=== PATIENT | female | born 1990 | race Caucasian/White ===

== ENCOUNTER → 2016-06-21 | Outpatient (CLI) | payer OTHER ==
[~2016-06-21] MED LIST: AUGMENTIN 875 M1 TAB PO; BACTRIM DS 8001 TAB PO; BUSPIRONE10 MG PO; CIPROFLOXACIN500 MG PO; HYDROCODONE BIT1 T11 PO; KEFLEX500 MG PO; KETOROLAC10 MG PO; MACROBID100 M1 PO; MOTRIN600 MG PO; MOTRIN800 MG PO; NORCO 325 MG-51 TAB PO; NORCO 5-325 TA1 EACH PO; PRILOSEC10 MG/Pack PO; PROAIR HFA8.5 GM INH; PYRIDIUM200 M1 PO; ROBAXIN500 MG PO; SERTRALINE HYDR50 MG PO; SILVADENE,SSD C50 GM PO; TAMSULOSIN HCL0.4 MG PO; ULTRAM50 MG PO; VERAMYST27.5 MCG/A NAS; VICODIN 500 MG-1 TAB PO; VICODIN ES 7501 TAB PO; ZOFRAN ODT4 MG SL
== END | disposition home or self-care (01) ==
LOC: LAB 14:33
DX: N20.1 Calculus of ureter (principal)

== ENCOUNTER → 2016-11-13 | Outpatient (CLI) | payer OTHER | END | disposition home or self-care (01) | LOC: CT 09:00 | DX: J32.0 Chronic maxillary sinusitis (principal); Z85.41 Personal history of malignant neoplasm of cervix uteri ==

== ENCOUNTER 2017-05-24 21:17 | Emergency (ER) | payer SELFPAY ==
[~2017-05-24] VITALS: Ht 162.5 cm; Wt 72.6 kg
--- NOTE | ~2017-05-24 | EKG ---
[place], [place] ELECTROCARDIOGRAM REPORT NAME: RICARDO RANDHAWA UNIT #: [id number] ROOM: DOCTOR: RICARDO DESAI,MANDY BIRTHDATE: [birth year] DOS: 05/24/2017 TIME: 2203 hours. IMPRESSION: 1. Sinus rhythm, sinus tachycardia. 2. Incomplete right bundle-cass block. 3. Left atrial enlargement. 4. Nonspecific ST-T changes. MANDY SILVA MD CM:EKGRPT:ELECTROCARDIOGRAM REPORT [id number] MANDY SILVA MD
[2017-05-24 22:41] LABS: BASO % 0.2 % (0.0-1.0); EOS # 0.1 10*3/uL (0.0-0.4); EOS % 0.8 % (1.0-4.0); HEMATOCRIT 41.7 % (37.0-47.0); HEMOGLOBIN 14.1 g/dl (12.0-16.0); LYMPH # 1.8 10*3/uL (1.3-4.4); LYMPH % 10.8 % (27.0-41.0); MEAN CELL VOLUME 93.7 fl (81.0-99.0); MEAN CORPUSCULAR HGB 31.7 pg (27.0-31.0); MEAN CORPUSCULAR HGB CONC 33.8 g/dl (33.0-37.0); MEAN PLATELET VOLUME 9.9 fl (9.6-12.3); MONO # 0.8 10*3/uL (0.1-1.0); NEUT # 13.6 10*3/uL (2.3-7.9); NEUT % 82.2 % (47.0-73.0); PLATELET COUNT AUTOMATED 255 10*3/uL (130-400); RED BLOOD COUNT 4.45 10*6/uL (4.10-5.10); RED CELL DISTRI WIDTH 13.5 % (0-14.5); WHITE BLOOD COUNT 16.5 10*3/uL (4.8-10.8)
[2017-05-24 23:01] LABS: ALBUMIN 4.2 gm/dl (3.1-4.5); ALKALINE PHOSPHATASE 105 U/L (45-117); BUN 10 mg/dl (7-24); CHLORIDE 103 mmol/L (98-107); CREATININE 0.86 mg/dL (0.55-1.02); POTASSIUM 4.1 mmol/L (3.5-5.1); SGOT/AST 37 IU/L (3-35); SGPT/ALT 67 U/L (12-78); SODIUM 140 mmol/L (136-145); TOTAL PROTEIN 8.5 gm/dL (6.4-8.2)
[2017-05-24 23:08] LABS: BETA-HCG, QUANT < 1.0 mIU/mL (1-3); TROPONIN I < 0.015 ng/ml (<0.045)
== END 2017-05-25 01:39 | disposition home or self-care (01) ==
LOC: ED 21:17
PROVIDERS: Student in an Organized Health Care Education/Training Program
DX: J06.9 Acute upper respiratory infection, unspecified (principal); F17.200 Nicotine dependence, unspecified, uncomplicated; Z79.899 Other long term (current) drug therapy

== ENCOUNTER 2019-01-01 16:24 | Emergency (ER) | payer SELFPAY ==
[~2019-01-01] VITALS: Ht 162.5 cm; Wt 83.9 kg
[~2019-01-01 16:24] MED LIST changes: +PREDNISONE20 M1 PO; +PROVENTIL HFA6.7 GM INH; +TESSALON PERLE100 M1 PO
[2019-01-01 16:49] LABS: BILIRUBIN NEGATIVE (NEGATIVE); BLOOD NEGATIVE (NEGATIVE); CLARITY CLEAR (CLEAR); COLOR YELLOW (YELLOW); GLUCOSE NEGATIVE (NEGATIVE); KETONE NEGATIVE (NEGATIVE); LEUKO ESTERASE 1+ (NEGATIVE); NITRITE NEGATIVE (NEGATIVE); SPECIFIC GRAVITY 1.025 (1.005-1.030); UROBILINOGEN 0.2 E.U./dl (0.2-1.0)
[2019-01-01 16:56] LABS: BASO % 0.3 % (0.0-1.0); EOS # 0.1 10*3/uL (0.0-0.4); EOS % 0.6 % (1.0-4.0); HEMATOCRIT 43.4 % (37.0-47.0); HEMOGLOBIN 14.2 g/dl (12.0-16.0); LYMPH # 2.3 10*3/uL (1.3-4.4); LYMPH % 20.8 % (27.0-41.0); MEAN CELL VOLUME 95.8 fl (81.0-99.0); MEAN CORPUSCULAR HGB 31.3 pg (27.0-31.0); MEAN CORPUSCULAR HGB CONC 32.7 g/dl (33.0-37.0); MONO # 0.6 10*3/uL (0.1-1.0); MONO % 5.7 % (3.0-9.0); NEUT % 72.1 % (47.0-73.0); PLATELET COUNT AUTOMATED 251 10*3/uL (130-400); RED BLOOD COUNT 4.53 10*6/uL (4.10-5.10); RED CELL DISTRI WIDTH 13.2 % (0-14.5); WHITE BLOOD COUNT 11.1 10*3/uL (4.8-10.8)
[2019-01-01 17:09] LABS: BACTERIA 2+
[2019-01-01 17:11] LABS: ALKALINE PHOSPHATASE 83 U/L (45-117); BUN 11 mg/dl (7-24); CHLORIDE 107 mmol/L (98-107); CREATININE 0.86 mg/dL (0.55-1.02); POTASSIUM 4.2 mmol/L (3.5-5.1); SGOT/AST 16 IU/L (3-35); SGPT/ALT 27 U/L (12-78); SODIUM 137 mmol/L (136-145); TOTAL PROTEIN 7.8 gm/dL (6.4-8.2)
[2019-01-01] MEDS ORDERED: CEFUROXIME AXE500 MG PO (18:21)
== END 2019-01-01 18:24 | disposition home or self-care (01) ==
LOC: ED 16:24
PROVIDERS: Nurse Practitioner Family
DX: N39.0 Urinary tract infection, site not specified (principal); F17.200 Nicotine dependence, unspecified, uncomplicated; Z79.899 Other long term (current) drug therapy; Z87.442 Personal history of urinary calculi

== ENCOUNTER 2019-01-24 20:48 | Emergency (ER) | payer MEDICAID ==
[~2019-01-24] VITALS: Ht 162.5 cm; Wt 83.9 kg
[~2019-01-24 20:48] MED LIST changes: +CEFUROXIME AXE500 MG PO
[2019-01-24 21:12] LABS: BILIRUBIN NEGATIVE (NEGATIVE); BLOOD NEGATIVE (NEGATIVE); CLARITY CLOUDY (CLEAR); COLOR YELLOW (YELLOW); GLUCOSE NEGATIVE (NEGATIVE); KETONE NEGATIVE (NEGATIVE); LEUKO ESTERASE 1+ (NEGATIVE); NITRITE NEGATIVE (NEGATIVE); PH 6.5 (5.0-9.0); SPECIFIC GRAVITY 1.015 (1.005-1.030)
[2019-01-24 21:18] LABS: BACTERIA 4+; RBC 0-2 rbc/hpf (0-2)
[2019-01-24] MEDS ORDERED: MACROBID100 M1 PO (23:00)
== END 2019-01-24 23:50 | disposition home or self-care (01) ==
LOC: ED 20:48
PROVIDERS: Physician Assistant
DX: G43.909 Migraine, unspecified, not intractable, without status migrainosus (principal); N39.0 Urinary tract infection, site not specified; F17.200 Nicotine dependence, unspecified, uncomplicated; Z79.899 Other long term (current) drug therapy; Z87.440 Personal history of urinary (tract) infections

== ENCOUNTER 2019-03-24 18:57 | Emergency (ER) | payer OTHER ==
[~2019-03-24] VITALS: Ht 162.5 cm; Wt 78.0 kg
[2019-03-24] MEDS ORDERED: PREDNISONE20 M1 PO (20:44)
[2019-03-24] MEDS ORDERED: ROBAXIN-750750 MG PO (20:44)
== END 2019-03-24 20:45 | disposition home or self-care (01) ==
LOC: ED 18:57
DX: M54.2 Cervicalgia (principal); M25.511 Pain in right shoulder; M25.512 Pain in left shoulder; R20.2 Paresthesia of skin; R53.1 Weakness; Z79.899 Other long term (current) drug therapy

== ENCOUNTER 2019-04-14 15:12 | Emergency (ER) | payer OTHER ==
[~2019-04-14] VITALS: Ht 162.5 cm; Wt 78.5 kg
[~2019-04-14 15:12] MED LIST changes: +ROBAXIN-750750 MG PO
[2019-04-14 15:45] LABS: BASO % 0.3 % (0.0-1.0); EOS # 0.1 10*3/uL (0.0-0.4); EOS % 0.7 % (1.0-4.0); HEMATOCRIT 44.3 % (37.0-47.0); HEMOGLOBIN 14.8 g/dl (12.0-16.0); LYMPH # 2.7 10*3/uL (1.3-4.4); LYMPH % 22.2 % (27.0-41.0); MEAN CELL VOLUME 93.5 fl (81.0-99.0); MEAN CORPUSCULAR HGB 31.2 pg (27.0-31.0); MEAN CORPUSCULAR HGB CONC 33.4 g/dl (33.0-37.0); MEAN PLATELET VOLUME 9.8 fl (9.6-12.3); MONO # 0.8 10*3/uL (0.1-1.0); MONO % 6.3 % (3.0-9.0); NEUT # 8.4 10*3/uL (2.3-7.9); PLATELET COUNT AUTOMATED 270 10*3/uL (130-400); RED BLOOD COUNT 4.74 10*6/uL (4.10-5.10); RED CELL DISTRI WIDTH 13.6 % (0-14.5)
[2019-04-14 15:54] LABS: BILIRUBIN NEGATIVE (NEGATIVE); BLOOD NEGATIVE (NEGATIVE); CLARITY SL CLOUDY (CLEAR); COLOR YELLOW (YELLOW); GLUCOSE NEGATIVE (NEGATIVE); KETONE NEGATIVE (NEGATIVE); LEUKO ESTERASE 1+ (NEGATIVE); NITRITE NEGATIVE (NEGATIVE); SPECIFIC GRAVITY <= 1.005 (1.005-1.030); UROBILINOGEN 0.2 E.U./dl (0.2-1.0)
[2019-04-14 16:04] LABS: ALBUMIN 3.6 gm/dl (3.1-4.5); ALKALINE PHOSPHATASE 82 U/L (45-117); BUN 9 mg/dl (7-24); CHLORIDE 111 mmol/L (98-107); CREATININE 0.89 mg/dL (0.55-1.02); POTASSIUM 3.6 mmol/L (3.5-5.1); SGOT/AST 22 IU/L (3-35); SGPT/ALT 39 U/L (12-78); SODIUM 141 mmol/L (136-145); TOTAL PROTEIN 7.4 gm/dL (6.4-8.2)
[2019-04-14 16:05] LABS: BACTERIA 4+; EPITHELIAL CELLS 30-35
[2019-04-14] MEDS ORDERED: SEPTDS PO (17:25)
== END 2019-04-14 17:35 | disposition home or self-care (01) ==
LOC: ED 15:12
PROVIDERS: Emergency Medicine
DX: N39.0 Urinary tract infection, site not specified (principal); G43.909 Migraine, unspecified, not intractable, without status migrainosus; K21.9 Gastro-esophageal reflux disease without esophagitis; F17.200 Nicotine dependence, unspecified, uncomplicated; Z79.2 Long term (current) use of antibiotics; Z79.899 Other long term (current) drug therapy; Z87.442 Personal history of urinary calculi

== ENCOUNTER 2019-10-26 17:06 | Inpatient (IN) | payer OTHER ==
[~2019-10-26] VITALS: Ht 162.5 cm; Wt 85.5 kg
[~2019-10-26 17:06] MED LIST changes: +SEPTDS PO
[2019-10-26 17:16] VITALS: BP 132/87
[2019-10-26 18:46] LABS: BASO % 0.2 % (0.0-1.0); EOS # 0.1 10*3/uL (0.0-0.4); EOS % 0.3 % (1.0-4.0); HEMATOCRIT 40.3 % (37.0-47.0); LYMPH # 1.6 10*3/uL (1.3-4.4); LYMPH % 8.7 % (27.0-41.0); MEAN CELL VOLUME 93.3 fl (81.0-99.0); MEAN CORPUSCULAR HGB 30.8 pg (27.0-31.0); MEAN PLATELET VOLUME 8.4 fl (9.6-12.3); MONO # 0.8 10*3/uL (0.1-1.0); MONO % 4.4 % (3.0-9.0); NEUT # 15.2 10*3/uL (2.3-7.9); NEUT % 85.3 % (47.0-73.0); PLATELET COUNT AUTOMATED 326 10*3/uL (130-400); RED BLOOD COUNT 4.32 10*6/uL (4.10-5.10); RED CELL DISTRI WIDTH 13.2 % (0-14.5); WHITE BLOOD COUNT 17.9 10*3/uL (4.8-10.8)
[2019-10-26 19:04] LABS: ALBUMIN 3.6 gm/dl (3.1-4.5); ALKALINE PHOSPHATASE 83 U/L (45-117); BUN 8 mg/dl (7-24); CHLORIDE 106 mmol/L (98-107); CREATININE 1.18 mg/dL (0.55-1.02); POTASSIUM 4.1 mmol/L (3.5-5.1); SGOT/AST 13 IU/L (3-35); SGPT/ALT 27 U/L (12-78); SODIUM 137 mmol/L (136-145); TOTAL PROTEIN 7.8 gm/dL (6.4-8.2)
--- NOTE | 2019-10-26 19:04 | NUR ---
NURSE TO NURSE REPORT GIVEN TO THIS RN.
[2019-10-26 19:10] VITALS: BP 123/73
--- NOTE | 2019-10-26 20:36 | NUR ---
INFUSION OF NS INITIATED AT THIS TIME.
--- NOTE | 2019-10-26 20:37 | NUR ---
RAPID COVID 19 TEST COMPLETED WITH NEGATIVE RESULT.HEAD WAITRESS NOTIFIED.
[2019-10-26 20:48] VITALS: BP 136/87
--- NOTE | 2019-10-26 21:04 | NUR ---
SWAB COLLECTED OF NARES AND TAKEN TO LAB FOR COVID 19 TESTING.
--- NOTE | 2019-10-26 21:11 | NUR ---
INFUSION OF ROCEPHIN COMPLETED.INFUSION OF ZITHROMAX INITIATED.
[2019-10-26 21:27] VITALS: BP 124/80
--- NOTE | 2019-10-26 21:32 | NUR ---
ROOM ASSIGNMENT OBTAINED.CT REQUEST PT TO BE TRANSPORT FOR TESTING PRIOR TO TRANSPORT TO UNIT.THIS RN WILL CALL AND CONTACT UNIT NURSE ON PLAN OF TRANSPORT TO UNIT.
[2019-10-26 21:35] LABS: LDH 181 U/L (84-246)
--- NOTE | 2019-10-26 21:35 | NUR ---
SBAR FAXED TO UNIT @ [id number].
[2019-10-26 21:39] LABS: TROPONIN I < 0.015 ng/ml (<0.045)
--- NOTE | 2019-10-26 21:49 | NUR ---
AWAITING FLOOR NURSE JAMES TO CALL WHEN READY FOR PT.
--- NOTE | 2019-10-26 22:04 | NUR ---
PT TAKEN TO CT AND BACK.
[2019-10-26 22:16] VITALS: BP 110/65
--- NOTE | 2019-10-26 22:16 | NUR ---
Time: 2215 A 29 FEMALE year old admitted to 4E under services of LORETO FOSTER DO. Pt. arrived via stretcher from ER. Chief complaint: SOB TIMES 3 DAYS. JAMES WALDEN
--- NOTE | 2019-10-26 23:39 | NUR ---
KATHIA CONSULT CALLED NO NEW ORDRES BUT TO HAVE PATIENT LAY ON HER STOMACH IF SHE CAN.
--- NOTE | 2019-10-26 23:42 | NUR ---
CONSULT CALLED TO [facility] ANSWERING SERVICE AWAITING CALL BACK.
[2019-10-26] MEDS ORDERED: LYRICA50 M1 PO (23:53)
[2019-10-26] MEDS ORDERED: HYDROXYZINE PAM25 M1 PO (23:53)
[2019-10-26] MEDS ORDERED: ZANAFLEX4 M1 PO (23:54)
[2019-10-26] MEDS ORDERED: FLUOXETINE HCL40 MG PO (23:54)
[2019-10-26] MEDS ORDERED: ZYPREXA10 M1 PO (23:55)
[2019-10-26] MEDS ORDERED: BUTRANS1 EAC2 TD (23:56)
[2019-10-26] MEDS ORDERED: PRAZOSIN HYDROCH1 MG PO (23:56)
[2019-10-26] MEDS ORDERED: METHYLPRED-DP4 MG PO (23:59)
--- NOTE | 2019-10-27 00:01 | NUR ---
MED REC UP TO DATE WITH LIST PATIENT BROUGHT IN
--- NOTE | 2019-10-27 00:10 | NUR ---
PATIENT IS AAOX3 BREATHING WITH EASY AND REGULAR RESPERS ON ROOM AIR. ASSESSMENT IS COMPLETE WITH NO C/O OR S/S OF DISTRESS NOTED AT THIS TIME. BED IS LOW, LOCKED, AND CALL LIGHT IS WITHIN REACH. VITALS OBTAINED. WILL CONTINUE TO MONITOR, SEE INTERVENTIONS.
--- NOTE | 2019-10-27 03:42 | NUR ---
PATIENT APPEARS TO BE SLEEPING WITH EASY AND REGULAR RESPERS ON ROOM AIR. AWAKENED EASILY FOR 0400 VITAL SIGNS. CALL LIGHT IS WITHIN REACH, NO S/S OF DISTRESS OR C/O NOTED AT THIS TIME.
--- NOTE | 2019-10-27 07:00 | NUR ---
ARRIVED ON SHIFT, REPORT RECEIVED FROM OFF GOING NURSE, ASSUMED CARE OF PATIENT.
[2019-10-27 07:01] LABS: BASO % 0.3 % (0.0-1.0); EOS # 0.2 10*3/uL (0.0-0.4); EOS % 1.2 % (1.0-4.0); HEMATOCRIT 39.4 % (37.0-47.0); LYMPH # 1.9 10*3/uL (1.3-4.4); LYMPH % 14.6 % (27.0-41.0); MEAN CELL VOLUME 95.9 fl (81.0-99.0); MEAN CORPUSCULAR HGB 31.4 pg (27.0-31.0); MEAN CORPUSCULAR HGB CONC 32.7 g/dl (33.0-37.0); MEAN PLATELET VOLUME 8.7 fl (9.6-12.3); MONO # 0.8 10*3/uL (0.1-1.0); MONO % 5.9 % (3.0-9.0); NEUT # 10.2 10*3/uL (2.3-7.9); NEUT % 76.8 % (47.0-73.0); PLATELET COUNT AUTOMATED 290 10*3/uL (130-400); RED BLOOD COUNT 4.11 10*6/uL (4.10-5.10); RED CELL DISTRI WIDTH 13.4 % (0-14.5); WHITE BLOOD COUNT 13.3 10*3/uL (4.8-10.8)
[2019-10-27 07:17] LABS: ALKALINE PHOSPHATASE 73 U/L (45-117); BUN 7 mg/dl (7-24); CHLORIDE 110 mmol/L (98-107); CHOLESTEROL 143 mg/dL (<200); CPK 39 U/L (26-192); CREATININE 1.19 mg/dL (0.55-1.02); HDL CHOLESTEROL 22 mg/dl (40-60); LDL CHOLESTEROL 78 mg/dL (9-159); POTASSIUM 4.1 mmol/L (3.5-5.1); SGOT/AST 14 IU/L (3-35); SGPT/ALT 22 U/L (12-78); SODIUM 138 mmol/L (136-145); TOTAL PROTEIN 7.1 gm/dL (6.4-8.2); TRIGLYCERIDES 217 mg/dl (<150); VLDL CHOLESTEROL 43 mg/dL (6-40)
--- NOTE | 2019-10-27 07:30 | NUR ---
INTRODUCED SELF TO PATIENT BED IN LOW POSITION, WHEEL LOCKS ENGAGED SIDE RAILS UP X 2 FOR TURNING AND REPOSITIONING, CALL LIGHT WITHIN REACH NO NEEDS VOICED AT THIS TIME.
[2019-10-27 07:49] LABS: VITAMIN D, 25-HYDROXY 14.5 ng/mL (30-100)
[2019-10-27 08:00] VITALS: BP 116/68
--- NOTE | 2019-10-27 08:53 | NUR ---
KENNETH-S in to talk to patient. Patient states lives at home with boyfriend. There are 2 steps in the home. Physician: Dr Crenshaw [facility]acy: [facility] Home health services: no Patient's level of ADLs: INDEPENDENT Patient has working utilities: yes DME: no Follow-up physician's appointment after d/c: Pt will schedule Does patient want to access PORTAL?: yes Discharge plan Patient states that she resides with her boyfriend Fox Roche. Pt is independent. Discussed support should pt need to self-isolate. Pt states that her mother or Fox's parents will be able to go shopping, etc for pt and Fox. Anticipate no discharge needs. GEOFF ALONZO
--- NOTE | 2019-10-27 08:56 | NUR ---
RECEIVED CALL FROM DR. US ORDER RECEIVED TO DC ROCEPHINE AND START NON CEFEPIME 2GM Q 12
[2019-10-27 12:00] VITALS: BP 120/80
[2019-10-27] MEDS ORDERED: DOXYCYCLINE100 MG PO (15:46)
[2019-10-27 16:00] VITALS: BP 109/71
--- NOTE | 2019-10-27 16:22 | NUR ---
PT SITTING UP IN BED, VITALS STABLE, NO COMPLAINTS AT THIS TIME, PT ENCOURAGED TO SHIFT POSITIONS, AND LAY IN THE PRONE POSITION EVERY 2 HOURS TOLERATED, PT VOICED UNDERSTANDING.
--- NOTE | 2019-10-27 17:05 | NUR ---
IS INNSTRUCTIONS GIVEN, ACHIEVING A VOLUM OF 1500 X10, PT ENOURAGED TO USE EVERY HOUR X10. PT VOICED UNDERSTANDING AND DEMONSTRATED APPROPRIATE TECHNIQUE
[2019-10-27 20:00] VITALS: BP 127/73
--- NOTE | 2019-10-27 21:25 | NUR ---
DR. US HERE AND SPOKE WITH PATIENT AND ORDERS RECEIVED.
[2019-10-28] VITALS: BP 115/70
--- NOTE | 2019-10-28 00:46 | NUR ---
24 HR chart check completed.
--- NOTE | 2019-10-28 04:00 | NUR ---
RESTING QUIETLY NO ACUTE DISTRESS NOTED. AT THIS TIME.
[2019-10-28 05:25] VITALS: BP 116/75
--- NOTE | 2019-10-28 05:30 | NUR ---
AWAKEND PATIENT. NO ACUTE DISTRESS NOTED. BLOOD DRAWN AND SENT TO LAB.
[2019-10-28 05:47] LABS: BASO % 0.3 % (0.0-1.0); EOS # 0.2 10*3/uL (0.0-0.4); EOS % 1.1 % (1.0-4.0); HEMATOCRIT 37.6 % (37.0-47.0); LYMPH # 2.2 10*3/uL (1.3-4.4); LYMPH % 14.1 % (27.0-41.0); MEAN CELL VOLUME 95.2 fl (81.0-99.0); MEAN CORPUSCULAR HGB 31.4 pg (27.0-31.0); MEAN PLATELET VOLUME 8.8 fl (9.6-12.3); MONO # 0.8 10*3/uL (0.1-1.0); MONO % 5.1 % (3.0-9.0); NEUT # 12.4 10*3/uL (2.3-7.9); NEUT % 78.3 % (47.0-73.0); PLATELET COUNT AUTOMATED 290 10*3/uL (130-400); RED BLOOD COUNT 3.95 10*6/uL (4.10-5.10); RED CELL DISTRI WIDTH 13.2 % (0-14.5); WHITE BLOOD COUNT 15.9 10*3/uL (4.8-10.8)
[2019-10-28 05:59] LABS: ALKALINE PHOSPHATASE 77 U/L (45-117); BUN 14 mg/dl (7-24); CHLORIDE 109 mmol/L (98-107); CPK 31 U/L (26-192); CREATININE 1.17 mg/dL (0.55-1.02); POTASSIUM 3.9 mmol/L (3.5-5.1); SGOT/AST 11 IU/L (3-35); SGPT/ALT 22 U/L (12-78); SODIUM 138 mmol/L (136-145); TOTAL PROTEIN 7.3 gm/dL (6.4-8.2)
--- NOTE | 2019-10-28 07:00 | NUR ---
ARRIVED ON SHIFT, REPORT RECEIVED FROM OFF GOING NURSE, ASSUMED CARE OF PATIENT.
--- NOTE | 2019-10-28 07:30 | NUR ---
INTRODUCED SELF TO PATIENT, BED IN LOW POSITION WITH WHEEL LOCKS ENGAGED, SIDE RAILS UP X 2 FOR TURNING AND REPOSITIONING, CALL LIGHT WITHIN REACH, PATIENT REPORTS IMPROVEMENT IN BREATHING OVER LAST 24 HOURS, DENIES ANY NEEDS AT THIS TIME. WHITE BOARD UPDATED.
[2019-10-28 08:00] VITALS: BP 139/77
[2019-10-28] MEDS ORDERED: DOXYCYCLINE100 M3 PO (11:51)
[2019-10-28] MEDS ORDERED: VITAMIN D350 MC2 PO (11:51)
[2019-10-28 12:00] VITALS: BP 139/77
--- NOTE | 2019-10-28 12:56 | NUR ---
Discharge instructions reviewed with patient/family. Patient receptive and verbalizes understanding. Follow-up care arranged. Written instructions given to patient/family. REMOVED IV, TELEMETRY REMOVED CLEANED AND PLACED IN BIN. PATIENT DECLINED W/C FOR DISCHARGE, REVIEWED IMPORTANCE OF ISOLATION UPON DISCHARGE. RUDI WATERS
[2019-10-28 13:06] LABS: HEP B CORE AB, IGM Negative (Negative); HEPATITIS B SURFACE AG Negative (Negative); HEPATITIS C AB 0.1 (0.0-0.9); HEPATITIS C VIRUS ANTIBODY 0.1 s/co (0.0-0.9)
== END 2019-10-28 12:56 | disposition home or self-care (01) | DRG 871 ==
LOC: ED 17:06 → EDHOLD 20:45 → 4E 21:19
PROVIDERS: Internal Medicine; Nurse Practitioner Family; ADMIT Internal Medicine
DX: A41.9 Sepsis, unspecified organism (principal); J18.9 Pneumonia, unspecified organism; E44.0 Moderate protein-calorie malnutrition; J45.901 Unspecified asthma with (acute) exacerbation; Z20.828 Contact with and (suspected) exposure to other viral communicable diseases; F17.210 Nicotine dependence, cigarettes, uncomplicated; N18.3 Chronic kidney disease, stage 3 (moderate); M54.5 Low back pain; G89.29 Other chronic pain; E55.9 Vitamin D deficiency, unspecified; E66.01 Morbid (severe) obesity due to excess calories; Z71.6 Tobacco abuse counseling; Z85.528 Personal history of other malignant neoplasm of kidney; Z90.5 Acquired absence of kidney; Q72.812 Congenital shortening of left lower limb; Z83.3 Family history of diabetes mellitus; Z82.49 Family history of ischemic heart disease and other diseases of the circulatory system; Z82.69 Family history of other diseases of the musculoskeletal system and connective tissue; Z79.899 Other long term (current) drug therapy; Z68.32 Body mass index [BMI] 32.0-32.9, adult

== ENCOUNTER 2020-03-07 19:52 | Emergency (ER) | payer OTHER ==
[~2020-03-07] VITALS: Ht 162.5 cm; Wt 83.9 kg
[~2020-03-07 19:52] MED LIST changes: +BUTRANS1 EAC2 TD; +DOXYCYCLINE100 M3 PO; +DOXYCYCLINE100 MG PO; +FLUOXETINE HCL40 MG PO; +HYDROXYZINE PAM25 M1 PO; +LYRICA50 M1 PO; +METHYLPRED-DP4 MG PO; +PRAZOSIN HYDROCH1 MG PO; +VITAMIN D350 MC2 PO; +ZANAFLEX4 M1 PO; +ZYPREXA10 M1 PO
[2020-03-07] MEDS ORDERED: AUGMENTIN 875875 MG PO (21:13)
== END 2020-03-07 21:35 | disposition home or self-care (01) ==
LOC: ED 19:52
DX: L03.213 Periorbital cellulitis (principal); F41.9 Anxiety disorder, unspecified; F17.200 Nicotine dependence, unspecified, uncomplicated; Z79.899 Other long term (current) drug therapy